=== PATIENT | male | born 2000 | race Caucasian/White ===

== ENCOUNTER 2022-05-24 11:11 | Emergency (ER) | payer SELFPAY ==
--- NOTE | 2022-05-24 11:26 | ERPHSYRPT ---
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 This injury includes laceration and possible fracture. I reviewed the patient's medication list and allergy list. History came directly from the patient. Patient's tetanus status is up-to-date. Occurred: just prior to arrival Quality: constant, aching, throbbing Severity of Pain-Max: moderate Severity of Pain-Current: moderate Extremities Pain Location: 3rd finger: right Modifying Factors: Improves With: nothing Associated Symptoms: none Allergies/Adverse Reactions: No Known Drug Allergies Allergy (Verified 05/24/22 11:34) Travel Risk - International Travel Have you traveled outside of the country in past 3 weeks: No - Coronavirus Screening Are you exhibiting any of the following symptoms?: No Close contact with a COVID-19 positive Pt in past 14-21 Days: No - Review of Systems Constitutional: No Symptoms Eyes: No Symptoms Ears, Nose, & Throat: No Symptoms Respiratory: No Symptoms Cardiac: No Symptoms Abdominal/Gastrointestinal: No Symptoms Genitourinary Symptoms: No Symptoms Musculoskeletal: Injury (Right third digit) Skin: Other (Laceration palmar aspect right third digit) Neurological: No Symptoms Psychological: No Symptoms Endocrine: No Symptoms Hematologic/Lymphatic: No Symptoms Immunological/Allergic: No Symptoms All Other Systems: Reviewed and Negative - Past Medical History Pertinent Past Medical History: No - Past Surgical History Past Surgical History: No - Nursing Vital Signs Nursing Vital Signs: Initial Vital Signs Temperature 98.1 F 05/24/22 11:23 Pulse Rate 65 05/24/22 11:23 Blood Pressure 118/74 05/24/22 11:23 O2 Sat by Pulse Oximetry 99 05/24/22 11:23 Pain Scale Pain Intensity 4 - Physical Exam General Appearance: no apparent distress, alert, anxiety, thin Eyes, Ears, Nose, Throat Exam: normal ENT inspection, moist mucous membranes Neck Exam: normal inspection, non-tender, supple, full range of motion Cardiovascular/Respiratory Exam: chest non-tender, no respiratory distress Abdominal Exam: non-tender Back Exam: normal inspection, normal range of motion, No CVA tenderness, No vertebral tenderness Shoulder Exam: normal inspection, non-tender, no evidence of injury, normal ROM Elbow/Forearm Exam: normal inspection, non-tender, no evidence of injury, normal ROM Wrist Exam: normal inspection, non-tender, no evidence of injury, normal ROM Hand Exam: normal ROM, laceration, soft tissue tenderness Neuro/Tendon Exam: normal sensation, normal motor functions, normal tendon functions, responds to pain, no evidence tendon injury, motor deficit, sensory deficit Mental Status Exam: alert, oriented x 3, cooperative Skin Exam: laceration (3 cm vertically oriented palmar aspect laceration. Tendon visible and intact. Right third digit), other (Skin edge bleeding.) SpO2 Interpretation: normal O2 Delivery: Room Air Procedures - Laceration/Wound Repair Right Volar Finger Time of Procedure: 12:05 Wound Location: Right, hand (Third digit palmar aspect timeout performed) Wound Length (cm): 3 Wound's Depth, Shape: linear, into subcut Wound Explored: clean (No foreign body noted. Performed in a bloodless field and examined to the base) Irrigated: Yes Hibiclens Prep: Yes Anesthesia: 1% Lidocaine Volume Anesthetic (ccs): 7 Wound Repaired With: sutures Suture Size/Type: 4-0, 3-0, prolene (3-0 Prolene 4 stitches placed), ethilon (Single stitch 4-0 Ethilon) Number of Sutures: 5 Layer Closure?: No Type of Splint Applied: Bulky dressing Progress: 05/24/22 12:23 There were no complications patient Toller procedure well. - Course Nursing assessment & vital signs reviewed: Yes Ordered Tests: Active Orders 24 hr Category Date Time Status HAND (MINIMUM 3 VIEWS) Stat Exams 05/24/22 11:35 Completed - Progress Progress: improved Progress Note: 05/24/22 12:24 X-ray right hand shows incomplete open hairline fracture head of the third middle phalanx radial aspect. The radiology report was reviewed by me Medical decision making: This patient's medical issues of low to moderate complexity. Taken into account was the patient's direct history as well as review of his medical history, medication list and allergy list. I also took into account the type of injury he sustained. This prompted me to order an x- ray of his right hand which I reviewed the radiology report. We performed a laceration repair and placed him in a splint of bulky dressing. Based on the above, discharge plan was formulated and discussed with the patient. This includes prescription for narcotic pain medicine, antibiotics and obtaining a consultation as an outpatient with a hand surgeon. 05/24/22 12:42 Medical decision making: Dr. Mejia, hand surgeon, will see the patient in his office. The office will be calling the patient today to make arrangements for an outpatient appointment. Counseled pt/family regarding: diagnosis, need for follow-up, rad results - Departure Departure Disposition: Home Clinical Impression: Open fracture of finger of right hand Condition: Stable Critical Care Time: No Additional Instructions: Take your medication as prescribed. Keep the bandage in place until you are evaluated by the hand surgeon. Dr. Mejia, hand surgeon out of [facility], will contact you today to arrange a follow-up appointment. Prescriptions: Oxycodone HCl/Acetaminophen [Percocet 5-325 mg Tablet] 1 each PO Q8H PRN PRN #6 tablet MDD 3 PRN Reason: Moderate To Severe Pain Cephalexin Mh 500 mg [Keflex 500 mg] 500 mg PO TID #21 cap
--- NOTE | 2022-05-24 12:11 | XRAY ---
Indication: Crush injury. Comparison: None 3 view right hand demonstrates incomplete hairline fracture head of 3rd middle phalanx radial aspect with soft tissue swelling. No other bony, articular, or soft tissue abnormalities.
[2022-05-24 12:21] VITALS: BP 107/69; PULSE 62; O2SAT 96
== END 2022-05-24 12:58 | disposition home or self-care (01) ==
LOC: ED 11:11
DX: S62.622B Displaced fracture of middle phalanx of right middle finger, initial encounter for open fracture (principal); W31.89XA Contact with other specified machinery, initial encounter; Z79.891 Long term (current) use of opiate analgesic
CPT/HCPCS: 12002; 73130; 99282

== ENCOUNTER 2024-06-27 17:24 | Emergency (ER) | payer OTHER ==
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
[2024-06-27 17:44] VITALS: TEMP 97.4
[2024-06-27 18:10] LABS: Absolute Neutrophil Ct (ANC) 4.33 x10^3/uL (1.78-5.38); BASOPHIL % 0.8 % (0.2-1.2); Basophil (Absolute #) 0.05 x10^3/uL (0.01-0.08); Eosinophil % 1.1 % (0.8-7.0); Eosinophil (Absolute #) 0.07 x10^3/uL (0.04-0.54); Hematocrit 44.6 % (40.1-51.0); Hemoglobin 15.9 g/dL (13.7-17.5); IMMATURE GRAN # 0.02 x10^3u/L (0.001-0.031); IMMATURE GRAN % 0.3 % (0.001-0.429); Lymphocyte (Absolute #) 1.31 x10^3/uL (1.32-3.57); Lymphocytes % 21.2 % (21.8-53.1); Mean Cell Volume 90.3 fL (79.0-92.2); Mean Corpuscular Hemoglobin 32.2 pg (25.7-32.2); Mean Corpuscular Hgb Concent. 35.7 g/dL (32.3-36.5); Mean Platelet Volume 9.1 fL (9.4-12.4); Monocyte (Absolute #) 0.41 x10^3/uL (0.30-0.82); Monocytes % 6.6 % (5.3-12.2); Platelet Count 267 x10^3/uL (163-337); Red Blood Count 4.94 x10^6/uL (4.63-6.08); Red Cell Distribution Width 11.8 % (11.6-14.4); White Blood Count 6.2 x10^3/uL (4.23-9.07)
--- NOTE | 2024-06-27 18:40 | XRAY ---
CLINICAL HISTORY: head trauma with incoord COMPARISON: None. TECHNIQUE: An axial non-contrast CT scan of the brain was performed from the skull base to the high parietal region. One of the following dose reduction techniques was utilized for this exam: Automated exposure control, adjustment of the mA and/or kV according to patient size, and use of iterative reconstruction. (CTDI: 53.92 mGy, DLP: 1428.29 mGy*cm) FINDINGS: Brain Parenchyma: Normal attenuation of the cerebral hemispheres, cerebellum, and brainstem. No evidence of acute infarct, hemorrhage, or mass effect. No abnormal areas of hypo- or hyperattenuation. Ventricular System: Ventricles are normal in size and configuration. No evidence of hydrocephalus or ventricular enlargement. Subarachnoid Spaces: Normal sulci and cisterns. No evidence of subarachnoid hemorrhage or extra-axial fluid collections. Cerebellum and Brainstem: Normal size and signal. No masses, lesions, or areas of abnormal signal. Orbits: Normal appearance of the globes, optic nerves, and extraocular muscles. No evidence of orbital masses or abnormal signals. Sinuses: Clear paranasal sinuses. No evidence of sinusitis or mucosal thickening. Mastoid Air Cells: Clear mastoid air cells. No evidence of mastoiditis. Skull: NO fractures. IMPRESSION: No acute intracranial abnormalities. Electronically Signed by: Leslie Veloz MD. (06/27/2024 18:36:57 EDT)
--- NOTE | 2024-06-27 18:46 | XRAY ---
CLINICAL HISTORY: head trauma COMPARISON: None. TECHNIQUE: A CT scan of the cervical spine was performed without the administration of intravenous contrast. Contiguous axial images were obtained from the skull base to the upper thoracic spine. Coronal and sagittal reformatted images were also reviewed. One of the following dose-reduction techniques was utilized for this exam. Automated exposure control, adjustment of the mA and/or kV according to patient size, and use of iterative reconstruction. FINDINGS: Vertebrae: The vertebral bodies are normal in height and alignment. No evidence of acute fracture or dislocation. The cortical and trabecular bone patterns are normal. No signs of lytic or sclerotic lesions. Normal configuration of the posterior elements. Intervertebral Discs: The intervertebral disc spaces are preserved. No evidence of significant disc bulging or herniation. No calcifications or ossifications were noted within the discs. Facet Joints: The facet joints are normal without evidence of dislocation, subluxation, or significant degenerative changes. Neural Foramina: The neural foramina is patent bilaterally at all levels. No evidence of foraminal narrowing or nerve root compression. Prevertebral Soft Tissues: The prevertebral soft tissues are normal in thickness without evidence of mass or abnormal fluid collection. Additional Findings: No other significant findings are noted in the visualized soft tissue structures or bony elements. IMPRESSION: Normal CT scan of the cervical spine. No evidence of acute fracture, dislocation, or significant degenerative changes. Electronically Signed by: Leslie Veloz MD. (06/27/2024 18:42:35 EDT)
[2024-06-27 19:30] VITALS: BP 132/89; PULSE 96; RESP 18; O2SAT 98
== END 2024-06-27 19:36 | disposition home or self-care (01) ==
LOC: ED 17:24
DX: S06.0X0A Concussion without loss of consciousness, initial encounter (principal); V89.2XXA Person injured in unspecified motor-vehicle accident, traffic, initial encounter; Z79.899 Other long term (current) drug therapy
CPT/HCPCS: 36415; 70450; 72125; 82077; 85025; 99285